=== PATIENT | male | born 1955 | race Caucasian/White ===

== ENCOUNTER 2016-08-23 16:54 | Emergency (ER) | payer OTHER ==
[~2016-08-23] VITALS: Ht 177.8 cm; Wt 64.5 kg
[~2016-08-23 16:54] MED LIST: CILOSTAZOL100 MG PO; ENDOCET 5-3251 EACH PO; LEVOFLOXACIN750 MG PO; LO-DOSE ASPIRIN81 M1 PO; NOHOMEMEDS
[2016-08-23] MEDS ORDERED: NORCO 5/3251 TABLET PO (19:34)
[2016-08-23 19:49] VITALS: BP 110/77
== END 2016-08-23 19:50 | disposition home or self-care (01) ==
LOC: EME 16:54
PROC: 3E0234Z Introduction of Serum, Toxoid and Vaccine into Muscle, Percutaneous Approach (ICD-10-PCS; principal; 2016-08-23)
DX: S22.32XA Fracture of one rib, left side, initial encounter for closed fracture (principal); S50.312A Abrasion of left elbow, initial encounter; V00.121A Fall from non-in-line roller-skates, initial encounter; Y93.51 Activity, roller skating (inline) and skateboarding; Y92.331 Roller skating rink as the place of occurrence of the external cause; Z23 Encounter for immunization
CPT/HCPCS: 71101; 99281; 99284; J1885

== ENCOUNTER 2017-07-27 02:09 | Emergency (ER) | payer OTHER ==
[~2017-07-27] VITALS: Ht 177.8 cm; Wt 70.8 kg
[~2017-07-27 02:09] MED LIST changes: +NORCO 5/3251 TABLET PO
[2017-07-27] MEDS ORDERED: ULTRAM50 MG PO (05:12)
[2017-07-27] MEDS ORDERED: CLEOCIN300 MG PO (05:12)
[2017-07-27 06:32] VITALS: BP 104/63
== END 2017-07-27 06:33 | disposition home or self-care (01) ==
LOC: EME 02:09
DX: K04.7 Periapical abscess without sinus (principal)